=== PATIENT | male | born 1945 | race Caucasian/White ===

== ENCOUNTER 2020-09-30 19:17 | Emergency (ER) | payer MEDICARE, OTHER ==
[2020-09-30] MEDS ORDERED: Acetaminophen 500 MG TAB ONE (19:47)
[2020-09-30 20:18] LABS: PTT 33.4 sec (22.9-36.1); Prothrombin Time 23.5 sec (12.0-14.7)
[2020-09-30 20:29] LABS: Bilirubin Negative (Negative); Blood, Urine Small (Negative); Clarity Clear (Clear); Glucose, Urine (Dipstick) Negative (Negative); Ketone, Urine Negative (Negative); Leukocyte Negative (Negative); Nitrite Negative (Negative); Protein, Urine (Dipstick) Negative (Neg-Trace); Specific Gravity, Urine 1.015 (1.005-1.030)
[2020-09-30 20:31] LABS: ALT (SGPT) 21 U/L (8-55); AST (SGOT) 22 U/L (5-34); Albumin 4.4 g/dL (3.4-4.8); Alkaline Phosphatase 55 U/L (40-110); Anion Gap 15 mmol/L (10-20); BUN (Urea Nitrogen) 12 mg/dL (8.4-25.7); Bilirubin, Total 0.8 mg/dL (0.2-1.2); Calc. Creatinine Clearance 0 mL/min (70-130); Calcium 9.4 mg/dL (7.8-10.44); Carbon Dioxide 25 mmol/L (23-31); Chloride 102 mmol/L (98-107); Globulin 3.5 g/dL (2.4-3.5); Glucose 138 mg/dL (83-110); Potassium 3.5 mmol/L (3.5-5.1); Protein, Total 7.9 g/dL (5.8-8.1); Sodium 138 mmol/L (136-145)
[2020-09-30 20:33] LABS: #Basophils 0.1 thou/uL (0.0-0.2); #Eosinphils 0.1 thou/uL (0.0-0.7); #Lymphocytes 0.5 thou/uL (1.20-3.40); #Monocytes 0.5 thou/uL (0.11-0.59); #Neutrophils 13.1 thou/uL (1.40-6.50); %Basophils 0.4 % (0.0-1.0); %Eosinophils 0.6 % (0.0-10.0); %Lymphocytes 3.6 % (21.0-51.0); %Monocytes 3.3 % (0.0-10.0); Hemoglobin 15.2 g/dL (14.0-18.0); Mean Corpuscular Hemoglobin 34.4 pg (27.0-31.0); Mean Corpuscular Volume 98.3 fL (78.0-98.0); Mean Platelet Volume 6.3 fL (7.4-10.4); Platelet Count 250 thou/uL (130-400); RBC Distribution Width 11.9 % (11.5-14.5); Red Blood Cell (RBC) Count 4.43 mill/uL (4.70-6.10); White Blood Cell (WBC) Count 14.2 thou/uL (4.8-10.8)
[2020-09-30 20:35] LABS: %Neutrophils 92.2 % (42.0-75.0)
[2020-09-30] MEDS ORDERED: Ibuprofen 800 MG TAB ONE (20:48)
[2020-09-30 21:57] LABS: SARS-CoV-2 NAA Rapid Test Not Detected (NotDetected)
== END 2020-09-30 22:20 | disposition home or self-care (01) ==
LOC: NAV ERS 19:17
DX: D72.829 Elevated white blood cell count, unspecified (principal); Z20.822 Contact with and (suspected) exposure to COVID-19; I25.2 Old myocardial infarction; I11.0 Hypertensive heart disease with heart failure; I50.9 Heart failure, unspecified; E11.9 Type 2 diabetes mellitus without complications; E78.5 Hyperlipidemia, unspecified; F17.220 Nicotine dependence, chewing tobacco, uncomplicated; Z79.899 Other long term (current) drug therapy; Z79.84 Long term (current) use of oral hypoglycemic drugs
CPT/HCPCS: 0240U; 71045; 80053; 83605; 84484; 85025; 85610; 85730; 87040; 87077; 87086; 87149 ×2; 93005; 99284; 81003; 81015; 87186

== ENCOUNTER 2020-10-04 11:36 | Emergency (ER) | payer MEDICARE, OTHER ==
[2020-10-04 13:08] LABS: #Basophils 0.1 thou/uL (0.0-0.2); #Eosinphils 0.2 thou/uL (0.0-0.7); #Lymphocytes 1.5 thou/uL (1.20-3.40); #Monocytes 0.5 thou/uL (0.11-0.59); %Basophils 0.9 % (0.0-1.0); %Eosinophils 2.5 % (0.0-10.0); %Lymphocytes 20.5 % (21.0-51.0); %Monocytes 7.3 % (0.0-10.0); %Neutrophils 68.8 % (42.0-75.0); ALT (SGPT) 19 U/L (8-55); AST (SGOT) 22 U/L (5-34); Albumin 3.8 g/dL (3.4-4.8); Alkaline Phosphatase 50 U/L (40-110); Anion Gap 15 mmol/L (10-20); BUN (Urea Nitrogen) 8 mg/dL (8.4-25.7); Bilirubin, Total 0.7 mg/dL (0.2-1.2); Calc. Creatinine Clearance 0 mL/min (70-130); Calcium 9.4 mg/dL (7.8-10.44); Carbon Dioxide 24 mmol/L (23-31); Chloride 103 mmol/L (98-107); Globulin 3.8 g/dL (2.4-3.5); Hemoglobin 13.6 g/dL (14.0-18.0); Mean Corpuscular Hemoglobin 33.9 pg (27.0-31.0); Mean Corpuscular Volume 96.8 fL (78.0-98.0); Mean Platelet Volume 6.5 fL (7.4-10.4); Platelet Count 262 thou/uL (130-400); Potassium 3.9 mmol/L (3.5-5.1); Protein, Total 7.6 g/dL (5.8-8.1); RBC Distribution Width 11.7 % (11.5-14.5); Red Blood Cell (RBC) Count 4.03 mill/uL (4.70-6.10); Sodium 138 mmol/L (136-145); White Blood Cell (WBC) Count 7.3 thou/uL (4.8-10.8)
[2020-10-04 13:14] LABS: Glucose 135 mg/dL (83-110)
[2020-10-04] MEDS ORDERED: Cefepime 2 GM VIAL ONE (13:20)
[2020-10-04] MEDS ORDERED: Sodium Chloride 0.9% 0 ML ONE (13:20)
[2020-10-04] MEDS ORDERED: Sodium Chloride 0.9% 100 ML ONE (13:22)
== END 2020-10-04 14:33 | disposition short-term general hospital (02) ==
LOC: NAV ERS 11:36
DX: L03.116 Cellulitis of left lower limb (principal); I11.0 Hypertensive heart disease with heart failure; I50.9 Heart failure, unspecified; E11.9 Type 2 diabetes mellitus without complications; E78.5 Hyperlipidemia, unspecified; I48.91 Unspecified atrial fibrillation; F17.220 Nicotine dependence, chewing tobacco, uncomplicated; Z79.899 Other long term (current) drug therapy
CPT/HCPCS: 80053; 83605; 85025; 85379; 87040; 96365; J0692; J3490